=== PATIENT | female | born 1980 | race African-American/Black ===

== ENCOUNTER 2017-03-29 16:56 | Emergency (ER) | payer MEDICAID, OTHER ==
[~2017-03-29] VITALS: Ht 157.5 cm; Wt 54.4 kg
[~2017-03-29 16:56] MED LIST: ATEN25TA PO; LORA-259 PO
--- NOTE | 2017-03-29 17:43 | NUR ---
PARVEZ RIOS at the bedside.
--- NOTE | 2017-03-29 17:54 | NUR ---
Patient discharged to home in stable conditon. Written and verbal after care instructions given. Patient verbalizes understanding of instructions.
[2017-03-29 17:55] VITALS: BP 146/90
== END 2017-03-29 17:57 | disposition home or self-care (01) ==
LOC: ER 16:57
DX: Z76.0 Encounter for issue of repeat prescription (principal)
CPT/HCPCS: A4663

== ENCOUNTER 2017-04-19 04:04 | Emergency (ER) | payer OTHER ==
[~2017-04-19] VITALS: Ht 160 cm; Wt 47.2 kg
--- NOTE | 2017-04-19 04:50 | NUR ---
at bedside for MSE. Pt c/o skin rash on rt nares.
--- NOTE | 2017-04-19 05:11 | NUR ---
Patient discharged to home in stable conditon. Written and verbal after care instructions given. Patient verbalizes understanding of instructions. Stable gait, no distress noted.
[2017-04-19 05:12] VITALS: BP 108/88
== END 2017-04-19 05:12 | disposition home or self-care (01) ==
LOC: ER 04:04
DX: L01.00 Impetigo, unspecified (principal); F10.239 Alcohol dependence with withdrawal, unspecified; D50.9 Iron deficiency anemia, unspecified
CPT/HCPCS: A4663

== ENCOUNTER 2017-05-31 00:23 | Emergency (ER) | payer OTHER ==
[~2017-05-31] VITALS: Ht 160 cm; Wt 49.4 kg
--- NOTE | 2017-05-31 00:50 | NUR ---
Dr. Espino at bedside for MSE.
--- NOTE | 2017-05-31 01:05 | NUR ---
Patient discharged to home in stable conditon. Written and verbal after care instructions given. Patient verbalizes understanding of instructions. Patient ambulated out of ER with steady gait, VSS, no acute signs of distress, all belongings taken.
[2017-05-31 01:07] VITALS: BP 135/98
== END 2017-05-31 01:07 | disposition home or self-care (01) ==
LOC: ER 00:23
DX: F41.9 Anxiety disorder, unspecified (principal); F10.239 Alcohol dependence with withdrawal, unspecified; F15.10 Other stimulant abuse, uncomplicated; Z79.899 Other long term (current) drug therapy
CPT/HCPCS: 99284; A4663

== ENCOUNTER 2017-07-23 19:55 | Emergency (ER) | payer OTHER ==
[~2017-07-23] VITALS: Ht 160 cm; Wt 48.5 kg
[2017-07-23] MEDS ORDERED: CHLORDIAZEPOXIDE HCL 25 MG CAPSULE PO ONE (20:30)
[2017-07-23] MEDS ORDERED: CHLORDIAZEPOXIDE HCL 25 MG CAPSULE ONE (20:36)
--- NOTE | 2017-07-23 20:43 | NUR ---
PT AAOX4. PT AMBULATED TO ER WITH C/O NAUSEA, HEADACHE, AND TREMORS. PT ABLE TO SPEAK IN COMPELTE SENTENCES AND ABLE TO VERABLIZE NEEDS. ALL PT NEEDS ATTENDED & MET.
--- NOTE | 2017-07-23 20:43 | NUR ---
Patient discharged to home in stable conditon. Written and verbal after care instructions given. Patient verbalizes understanding of instructions. Patient left ER and walks in steady gait. No acute distress noted. Pt giong home via [employer].
[2017-07-23 20:49] VITALS: BP 102/57
== END 2017-07-23 20:50 | disposition home or self-care (01) ==
LOC: ER 19:58
DX: F10.239 Alcohol dependence with withdrawal, unspecified (principal); F11.10 Opioid abuse, uncomplicated; Z79.899 Other long term (current) drug therapy
CPT/HCPCS: 99283; A4663

== ENCOUNTER 2017-09-21 02:06 | Emergency (ER) | payer OTHER ==
[~2017-09-21] VITALS: Ht 160 cm; Wt 48.5 kg
[2017-09-21] MEDS ORDERED: LORAZEPAM 1 MG TABLET ONE (02:57)
[2017-09-21 02:58] VITALS: BP 124/92
--- NOTE | 2017-09-21 02:58 | NUR ---
Patient discharged to home in stable conditon. Written and verbal after care instructions given. Patient verbalizes understanding of instructions.
[2017-09-21] MEDS ORDERED: LORAZEPAM 0.5 MG TABLET PO ONE (03:00)
== END 2017-09-21 02:59 | disposition home or self-care (01) ==
LOC: ER 02:08
DX: F41.9 Anxiety disorder, unspecified (principal); Z79.899 Other long term (current) drug therapy
CPT/HCPCS: 99284; A4663

== ENCOUNTER 2017-10-27 18:35 | Emergency (ER) | payer OTHER ==
[~2017-10-27] VITALS: Ht 167.6 cm; Wt 48.5 kg
--- NOTE | 2017-10-27 18:57 | NUR ---
Patient is resting comfortably on gurney while using her personal electronic device, NAD, pending MD evaluation
--- NOTE | 2017-10-27 19:06 | NUR ---
still for GOLD Degroot to ISAEL Zepeda
--- NOTE | 2017-10-27 19:40 | NUR ---
Patient discharged to home in stable conditon. Written and verbal after care instructions given. Patient verbalizes understanding of instructions. Patient able to ambulate unassisted with a steady gait. Patient left with all personal belongings.
[2017-10-27] MEDS ORDERED: CHLORDIAZEPOXIDE HCL 25 MG CAPSULE ONE (19:41)
[2017-10-27] MEDS ORDERED: CHLORDIAZEPOXIDE HCL 25 MG CAPSULE PO ONE (19:45)
[2017-10-27 19:46] VITALS: BP 156/88
== END 2017-10-27 19:40 | disposition home or self-care (01) ==
LOC: ER 18:37
DX: F10.239 Alcohol dependence with withdrawal, unspecified (principal); Z76.0 Encounter for issue of repeat prescription; F14.10 Cocaine abuse, uncomplicated
CPT/HCPCS: A4663

== ENCOUNTER 2018-01-31 17:34 | Inpatient (IN) | payer OTHER ==
[~2018-01-31] VITALS: Ht 165.1 cm; Wt 47.6 kg
--- NOTE | 2018-01-31 17:43 | NUR ---
DR DEL ANGEL at the bedside for MSE.
[2018-01-31] MEDS ORDERED: LORAZEPAM 2 MG/1 ML VIAL IV ONE ×2 (18:00→22:00)
[2018-01-31] MEDS ORDERED: THIAMINE HCL 200 MG/2 ML VIAL IV ONE (18:00)
[2018-01-31] MEDS ORDERED: IV NORMAL SALINE 1000 ML BAG IV ONE (18:00)
[2018-01-31 18:01] LABS: BASOPHILS % (AUTO) 0.4 % (0.0-2.0); EOSINOPHILS % (AUTO) 0.5 % (0.0-7.0); HEMATOCRIT 39.4 % (31.2-41.9); HEMOGLOBIN 13.1 g/dL (10.9-14.3); LYMPHOCYTES # (AUTO) 0.7 K/uL (20.0-40.0); LYMPHOCYTES % (AUTO) 9.5 % (20.5-51.5); MEAN CORPUSCULAR HEMOGLOBIN 32.2 uug (24.7-32.8); MEAN CORPUSCULAR HGB CONC 33 g/dL (32.3-35.6); MEAN CORPUSCULAR VOLUME 97.3 fL (75.5-95.3); MONOCYTES # (AUTO) 1.1 K/uL (2.0-10.0); MONOCYTES % (AUTO) 14.5 % (0.0-11.0); NEUTROPHILS # (AUTO) 5.5 K/uL (1.8-8.9); NEUTROPHILS % (AUTO) 75.1 % (38.5-71.5); PLATELET COUNT (AUTO) 231 K/uL (179-408); RED BLOOD CELL COUNT(AUTO) 4.05 MIL/uL (3.63-4.92); WHITE BLOOD COUNT (AUTO) 7.3 K/uL (3.8-11.8)
[2018-01-31 18:07] LABS: CARBON DIOXIDE 28 mmol/L (21-32); CHLORIDE 93 mmol/L (98-107); CREATININE 0.8 mg/dL (0.6-1.3); GLUCOSE 135 mg/dL (74-106); POTASSIUM 3.3 mmol/L (3.5-5.1); UREA NITROGEN, BLOOD 14 mg/dL (7-18)
[2018-01-31 18:12] LABS: ALANINE AMINOTRANSFERASE 93 U/L (14-59); ALKALINE PHOSPHATASE 70 U/L (50-136); ASPARTATE AMINOTRANSFERASE 108 U/L (15-37); BILIRUBIN,DIRECT 0.3 mg/dL (0.0-0.2); TOTAL PROTEIN, SERUM 8.8 g/dL (6.4-8.2)
[2018-01-31 18:15] LABS: ETHANOL < 3 MG/DL (0-0)
[2018-01-31] MEDS ORDERED: POTASSIUM CHLORIDE 20 MEQ TAB.PRT.SR PO ONE (18:15)
[2018-01-31 18:27] LABS: *URINE HCG, QUAL NEGATIVE (NEGATIVE)
[2018-01-31] MEDS ORDERED: methylPREDNISolone SOD SUCC 125 MG/2 ML VIAL IV ONE (18:30)
[2018-01-31] MEDS ORDERED: ALBUTEROL SULFATE 2.5 MG/3 ML NEBU NEB ONE (18:30)
[2018-01-31] MEDS ORDERED: IPRATROPIUM BROMIDE 0.5 MG/2.5 ML NEBU NEB ONE (18:30)
--- NOTE | 2018-01-31 18:30 | NUR ---
Pt is confused and disoriented and talking to self. No Seizure activity noted.
[2018-01-31 18:40] LABS: *AMPHETAMINE, URINE POSITIVE (NEGATIVE); *BARBITURATE, URINE NEGATIVE (NEGATIVE); *CANNABINOID, URINE NEGATIVE (NEGATIVE); *COCCAINE, URINE NEGATIVE (NEGATIVE); *OPIATE, URINE NEGATIVE (NEGATIVE); *PHENCYCLIDINE SCREEN,URINE NEGATIVE (NEGATIVE)
--- NOTE | 2018-01-31 18:40 | NUR ---
DINNER PROVIDED, ATE W/ GOOD APPETITE. NO C/O PAIN.
--- NOTE | 2018-01-31 19:02 | NUR ---
Patient is resting comfortably in bed with eyes closed, NAD noted.
[2018-01-31] MEDS ORDERED: THIAMINE HCL 200 MG/2 ML VIAL ONE (19:09)
[2018-01-31] MEDS ORDERED: LORAZEPAM 2 MG/1 ML VIAL ONE (19:10)
[2018-01-31] MEDS ORDERED: POTASSIUM CHLORIDE 20 MEQ TAB.PRT.SR ONE (19:25)
--- NOTE | 2018-01-31 19:37 | NUR ---
SBAR report given to KARON Mcclellan.
[2018-01-31] MEDS ORDERED: IV NS 1000 ML 1,000 ML IV PRN (19:41)
[2018-01-31] MEDS ORDERED: THIAMINE HCL INJ 100 MG in IV DEXTROSE 5% 50 ML IV SCH (19:45)
[2018-01-31] MEDS ORDERED: HYDROCODONE/APAP 5-325MG TABLET PO PRN (19:45)
[2018-01-31] MEDS ORDERED: MAGNESIUM HYDROXIDE 30 ML LIQUID UDC PO PRN (19:45)
[2018-01-31] MEDS ORDERED: IPRATROPIUM BROMIDE 0.5 MG/2.5 ML NEBU NEB PRN (19:45)
[2018-01-31] MEDS ORDERED: LORAZEPAM 2 MG/1 ML VIAL IV PRN (19:45)
[2018-01-31] MEDS ORDERED: MAGNESIUM SULFATE/D5W 100 ML IV SCH (19:45)
[2018-01-31] MEDS ORDERED: TEMAZEPAM 15 MG CAPSULE PO PRN (19:45)
[2018-01-31] MEDS ORDERED: FOLIC ACID 1 MG in IV DEXTROSE 5% 50 ML IV SCH (19:45)
[2018-01-31] MEDS ORDERED: ALBUTEROL SULFATE 2.5 MG/3 ML NEBU NEB PRN (19:45)
[2018-01-31] MEDS ORDERED: ACETAMINOPHEN 325 MG TABLET PO PRN (19:45)
[2018-01-31] MEDS ORDERED: ONDANSETRON 4 MG/2 ML VIAL IV PRN (19:45)
--- NOTE | 2018-01-31 19:59 | NUR ---
ADMITTED TO [facility] VIA W/C W/ ADM DX: ALCOHOL JOCE UNDER GEORGE DENNISON. PERSONAL BELONGINGS CHECKED.
[2018-01-31 20:00] VITALS: BP 133/90
--- NOTE | 2018-01-31 20:00 | NUR ---
Received pt in unit under care of CARLA Evangelista with admitting diagnosis of Delirium Tremens. Pt alert and oriented x 4, redirectable and able to make needs known. No s/s of acute distress. Pt constantly talking to self, but denies tremors and hallucinations at this time. Pertinent assessments done. Tele monitor sinus tachy with HR at 120. Relaxation techniques implemented. Pt made aware of plan of care with mom at bedside. Unit orientation provided. Safe environment implemented. Call light within reach.
[2018-01-31] MEDS ORDERED: ATENOLOL 25 MG TABLET PO ONE (22:00)
--- NOTE | 2018-01-31 22:00 | NUR ---
Notified admitting OBSTETRICS AND GYNECOLOGY PROFESSOR of pt's elevated HR, received orders to administer additional dose of Ativan 1 mg IVP and Tenormin 12.5 mg PO once. Will continue to monitor closely.
[2018-01-31] MEDS ORDERED: FOLIC ACID 5 MG/ML VIAL IV ONE (22:50)
[2018-01-31] MEDS ORDERED: MAGNESIUM SULFATE/D5W 100 ML ONE (22:51)
[2018-01-31] MEDS: CHLORDIAZEPOXIDE HCL 25 MG CAPSULE PO SCH (23:26)
[2018-02-01] VITALS: BP 113/72
[2018-02-01 04:00] VITALS: BP 106/73
[2018-02-01 05:35] LABS: BASOPHILS % (AUTO) 0.4 % (0.0-2.0); EOSINOPHILS % (AUTO) 0.5 % (0.0-7.0); HEMATOCRIT 39.3 % (31.2-41.9); HEMOGLOBIN 13.3 g/dL (10.9-14.3); LYMPHOCYTES # (AUTO) 1.5 K/uL (20.0-40.0); LYMPHOCYTES % (AUTO) 16.9 % (20.5-51.5); MEAN CORPUSCULAR HGB CONC 34 g/dL (32.3-35.6); MEAN CORPUSCULAR VOLUME 97.6 fL (75.5-95.3); MONOCYTES % (AUTO) 11.2 % (0.0-11.0); NEUTROPHILS # (AUTO) 6.4 K/uL (1.8-8.9); PLATELET COUNT (AUTO) 208 K/uL (179-408); RED BLOOD CELL COUNT(AUTO) 4.02 MIL/uL (3.63-4.92)
[2018-02-01 05:55] LABS: CREATININE 0.9 mg/dL (0.6-1.3); PHOSPHOROUS 3.3 mg/dL (2.5-4.9); POTASSIUM 3.6 mmol/L (3.5-5.1); TOTAL PROTEIN, SERUM 7.6 g/dL (6.4-8.2)
[2018-02-01] MEDS: CHLORDIAZEPOXIDE HCL 25 MG CAPSULE PO SCH ×2 (06:11→12:18)
--- NOTE | 2018-02-01 06:48 | NUR ---
All needs attended to. No s/s of acute distress noted at this time. Tele sinus rhythm with HR at 95. Safe environment implemented.
--- NOTE | 2018-02-01 07:10 | NUR ---
Received patient in bed, asleep, in no acute distress. No s/s of pain or SOB noted. IV site on RFA intact, IV fluids running at 75cc/hr. Fall precaution in place. Will continue to monitor
[2018-02-01] MEDS ORDERED: ATENOLOL 25 MG TABLET PO SCH (09:00)
[2018-02-01] MEDS ORDERED: PANTOPRAZOLE SODIUM 40 MG VIAL IV SCH (09:00)
[2018-02-01] MEDS ORDERED: NICOTINE 14 MG/24HR PATCH TD SCH (09:00)
[2018-02-01] MEDS ORDERED: FOLIC ACID 1 MG TABLET PO SCH (10:45)
[2018-02-01] MEDS ORDERED: THIAMINE HCL 100 MG TABLET PO SCH (10:45)
[2018-02-01 11:17] VITALS: BP 105/70
[2018-02-01] MEDS ORDERED: THIA100T13 PO (12:03)
[2018-02-01] MEDS ORDERED: FOLI1TAB16 PO (12:03)
[2018-02-01] MEDS ORDERED: CHLO25CA22 PO (12:03)
--- NOTE | 2018-02-01 12:48 | NUR ---
Patient was discharged to home via private car accompanied by mother. Discharge instructions given, instructed [facility] Johnson because patient does not have a PCP. Informations about [facility] provided, patient able to verbalized understanding, per patient she will call in and set up appointment. Prescriptions given to patient. Iv site was discontinued, no s/s of bleeding noted. Left the hospital in stable condition.
== END 2018-02-01 12:50 | disposition home or self-care (01) | DRG 774 ==
LOC: ER 17:35 → TELE 19:41
PROVIDERS: ADMIT Nurse Practitioner Acute Care; ATTEND Nurse Practitioner Acute Care
DX: F10.231 Alcohol dependence with withdrawal delirium (principal); F14.10 Cocaine abuse, uncomplicated; G31.2 Degeneration of nervous system due to alcohol; E87.1 Hypo-osmolality and hyponatremia; D52.9 Folate deficiency anemia, unspecified; K29.20 Alcoholic gastritis without bleeding; Y90.0 Blood alcohol level of less than 20 mg/100 ml; F17.210 Nicotine dependence, cigarettes, uncomplicated; E87.6 Hypokalemia; R74.0 Nonspecific elevation of levels of transaminase and lactic acid dehydrogenase [LDH]; F15.10 Other stimulant abuse, uncomplicated; F41.9 Anxiety disorder, unspecified; Z79.899 Other long term (current) drug therapy; D75.89 Other specified diseases of blood and blood-forming organs; R73.9 Hyperglycemia, unspecified
CPT/HCPCS: 36415; 71045; 80307; 83550; 83735; 84100; 84703; 85025; 93005; A4663; C9113; G0378; G0480; J2060; J2405; J3411; J3475; J3490; J7030; J7060

== ENCOUNTER 2018-05-17 02:15 | Emergency (ER) | payer OTHER ==
[~2018-05-17] VITALS: Ht 160 cm; Wt 51.3 kg
[~2018-05-17 02:15] MED LIST changes: +CHLO25CA22 PO; +FOLI1TAB16 PO; +THIA100T13 PO
[2018-05-17] MEDS ORDERED: THIAMINE (02:23)
[2018-05-17] MEDS ORDERED: VITAMIN B1 (02:23)
--- NOTE | 2018-05-17 02:31 | NUR ---
Pt ambulates to ER with c/o fatigue, sore throat, & cough x 2 weeks. SA02 100% room air. Vital signs stable. No acute distress noted.
--- NOTE | 2018-05-17 03:08 | NUR ---
Dr. Puga, , at bedside to evaluate pt.
[2018-05-17] MEDS ORDERED: IV NORMAL SALINE 1000 ML BAG IV ONE (03:15)
[2018-05-17] MEDS ORDERED: ACETAMINOPHEN 325 MG TABLET PO ONE (03:15)
[2018-05-17] MEDS ORDERED: METOCLOPRAMIDE HCL 10 MG/2 ML VIAL IV ONE (03:15)
[2018-05-17 03:36] LABS: BASOPHILS # (AUTO) 0.1 K/uL (0.0-8.0); BASOPHILS % (AUTO) 1.4 % (0.0-2.0); CARBON DIOXIDE 29 mmol/L (21-32); CHLORIDE 102 mmol/L (98-107); CREATININE 0.5 mg/dL (0.6-1.3); EOSINOPHILS # (AUTO) 0.2 K/uL (0.0-0.7); EOSINOPHILS % (AUTO) 3.7 % (0.0-7.0); GLUCOSE 86 mg/dL (74-106); HEMATOCRIT 32.5 % (31.2-41.9); HEMOGLOBIN 10.5 g/dL (10.9-14.3); LYMPHOCYTES # (AUTO) 1.8 K/uL (20.0-40.0); LYMPHOCYTES % (AUTO) 35.6 % (20.5-51.5); MEAN CORPUSCULAR HEMOGLOBIN 29.9 uug (24.7-32.8); MEAN CORPUSCULAR HGB CONC 32 g/dL (32.3-35.6); MEAN CORPUSCULAR VOLUME 92.6 fL (75.5-95.3); MONOCYTES # (AUTO) 0.9 K/uL (2.0-10.0); MONOCYTES % (AUTO) 18.2 % (0.0-11.0); NEUTROPHILS # (AUTO) 2.1 K/uL (1.8-8.9); NEUTROPHILS % (AUTO) 41.1 % (38.5-71.5); PLATELET COUNT (AUTO) 379 K/uL (179-408); POTASSIUM 3.7 mmol/L (3.5-5.1); RED BLOOD CELL COUNT(AUTO) 3.51 MIL/uL (3.63-4.92); UREA NITROGEN, BLOOD 11 mg/dL (7-18)
[2018-05-17 03:46] LABS: BASOPHILS % (MANUAL) 1 % (0-2); EOSINOPHILS % (MANUAL) 4 % (0-8); LYMPHOCYTES % (MANUAL) 36 % (20-40); MONOCYTES % (MANUAL) 18 % (2-10); NEUTROPHILS % (MANUAL) 41 % (42-75)
[2018-05-17] MEDS ORDERED: ACETAMINOPHEN 325 MG TABLET ONE (04:00)
[2018-05-17] MEDS ORDERED: METOCLOPRAMIDE HCL 10 MG/2 ML VIAL ONE (04:00)
--- NOTE | 2018-05-17 04:00 | NUR ---
Pt sleeping in bed comfortably. Pending results.
--- NOTE | 2018-05-17 06:00 | NUR ---
IV removed. Catheter intact and site benign. Pressure and 4x4 gauze applied to site. No bleeding noted.
--- NOTE | 2018-05-17 06:00 | NUR ---
Patient discharged to home in stable conditon. Written and verbal after care instructions given. Patient verbalizes understanding of instructions.
[2018-05-17 06:19] VITALS: BP 118/82
== END 2018-05-17 06:20 | disposition home or self-care (01) ==
LOC: ER 02:15
DX: J18.9 Pneumonia, unspecified organism (principal); F17.200 Nicotine dependence, unspecified, uncomplicated; F14.10 Cocaine abuse, uncomplicated; Z79.899 Other long term (current) drug therapy
CPT/HCPCS: 36415; 71045; 80048; 84702; 85025; 96374; 99284; J2765; A4663; J7030

== ENCOUNTER 2018-06-16 02:31 | Emergency (ER) | payer OTHER ==
[~2018-06-16] VITALS: Ht 152.4 cm; Wt 54.4 kg
--- NOTE | 2018-06-16 02:42 | NUR ---
Pt ambulates to ER here for test, states she wants ativan for alcohol withdrawal, & vitamin B. No abd pain, n/v/d. No chest pain/sob. AAOx3.
[2018-06-16] MEDS ORDERED: LORAZEPAM 0.5 MG TABLET PO ONE (02:45)
[2018-06-16] MEDS ORDERED: VITAMIN B COMPLEX 1 TABLET PO SCH (02:45)
--- NOTE | 2018-06-16 03:41 | NUR ---
Pt is sleeping in bed comfortably. Respirations even + unlabored. Pending results of test.
[2018-06-16] MEDS ORDERED: LORAZEPAM 1 MG TABLET ONE ×3 (03:51→03:58)
[2018-06-16] MEDS ORDERED: THIAMINE HCL 100 MG TABLET ONE (04:00)
[2018-06-16] MEDS ORDERED: THIAMINE HCL 100 MG TABLET PO ONE (04:00)
--- NOTE | 2018-06-16 05:41 | NUR ---
Patient given written and verbal discharge instructions. Patient verbalizes understanding of instructions. Patient is ambulatory with steady gait. Refuses offer of [facility] placement. Patient given list of available shelters in surrounding area. Pt given sandwich.
--- NOTE | 2018-06-16 05:42 | NUR ---
Pt is awake, alert, oriented x 3. Ambulated out of ER in stable gait.
== END 2018-06-16 05:53 | disposition home or self-care (01) ==
LOC: ER 02:33
DX: F10.129 Alcohol abuse with intoxication, unspecified (principal); F14.10 Cocaine abuse, uncomplicated; F15.10 Other stimulant abuse, uncomplicated; F17.200 Nicotine dependence, unspecified, uncomplicated; Y90.9 Presence of alcohol in blood, level not specified
CPT/HCPCS: 36415; A4663

== ENCOUNTER 2018-06-16 09:29 | Emergency (ER) | payer OTHER ==
[~2018-06-16] VITALS: Ht 152.4 cm; Wt 54.4 kg
--- NOTE | 2018-06-16 09:44 | NUR ---
Dr Shelley at the bedside for MSE.
[2018-06-16 10:20] LABS: BASOPHILS % (AUTO) 0.6 % (0.0-2.0); EOSINOPHILS # (AUTO) 0.1 K/uL (0.0-0.7); EOSINOPHILS % (AUTO) 1.3 % (0.0-7.0); HEMATOCRIT 33.8 % (31.2-41.9); HEMOGLOBIN 10.9 g/dL (10.9-14.3); LYMPHOCYTES # (AUTO) 1.1 K/uL (20.0-40.0); LYMPHOCYTES % (AUTO) 19.8 % (20.5-51.5); MEAN CORPUSCULAR HEMOGLOBIN 28.6 uug (24.7-32.8); MEAN CORPUSCULAR HGB CONC 32 g/dL (32.3-35.6); MEAN CORPUSCULAR VOLUME 88.6 fL (75.5-95.3); MONOCYTES # (AUTO) 0.8 K/uL (2.0-10.0); MONOCYTES % (AUTO) 14.9 % (0.0-11.0); NEUTROPHILS # (AUTO) 3.4 K/uL (1.8-8.9); NEUTROPHILS % (AUTO) 63.4 % (38.5-71.5); PLATELET COUNT (AUTO) 345 K/uL (179-408); RED BLOOD CELL COUNT(AUTO) 3.81 MIL/uL (3.63-4.92); WHITE BLOOD COUNT (AUTO) 5.4 K/uL (3.8-11.8)
[2018-06-16 10:25] LABS: CARBON DIOXIDE 31 mmol/L (21-32); CHLORIDE 98 mmol/L (98-107); CREATININE 0.6 mg/dL (0.6-1.3); GLUCOSE 135 mg/dL (74-106); POTASSIUM 3.4 mmol/L (3.5-5.1); UREA NITROGEN, BLOOD 16 mg/dL (7-18)
[2018-06-16 10:31] LABS: ALANINE AMINOTRANSFERASE 66 U/L (14-59); ALKALINE PHOSPHATASE 77 U/L (50-136); ASPARTATE AMINOTRANSFERASE 70 U/L (15-37); BILIRUBIN,DIRECT 0.2 mg/dL (0.0-0.2); BILIRUBIN,TOTAL 0.8 mg/dL (0.2-1.0); LIPASE 92 U/L (73-393); TOTAL PROTEIN, SERUM 7.1 g/dL (6.4-8.2)
--- NOTE | 2018-06-16 10:35 | NUR ---
Patient is resting comfortably in bed with eyes closed, NAD noted.
[2018-06-16] MEDS ORDERED: ACETAMINOPHEN 325 MG TABLET ONE (10:40)
[2018-06-16] MEDS ORDERED: ONDANSETRON HCL 4 MG TABLET ONE (10:40)
--- NOTE | 2018-06-16 10:40 | NUR ---
Pt able to tolorate po intake.
[2018-06-16] MEDS: ACETAMINOPHEN 325 MG TABLET PO ONE (10:42)
[2018-06-16] MEDS: ONDANSETRON HCL 4 MG TABLET PO ONE (10:43)
--- NOTE | 2018-06-16 11:10 | NUR ---
Pt states she spoke to her mother and will be picked up.
--- NOTE | 2018-06-16 11:30 | NUR ---
Pt mother and grandmother at the bedside speaking w/ pt.
--- NOTE | 2018-06-16 11:38 | NUR ---
10:55am: SW met with patient as a follow-up to patient's admission earlier today, when patient reported being homeless and was provided by homeless resource packet by shift coordinator nurse. This is patient's second admission today. Patient is a 37 year old female, who was in her assigned ED bed and on the phone with her mother, when SW attempted to meet with her. Patient was receptive to meeting with this SW. Patient states being homeless for the past month. Patient stated that she was previously living with her ex-fiance. Patient acknowledged being provided with the homeless resource packet, and pulled it out of her bag. SW reviewed the packet with her, which includes the list of winter shelters throughout [facility], a list of pharmacies throughout the [facility], a list of medical clinics, mental health clinics, and substance abuse programs and treatment clinics, and the [facility] homeless resource directory which includes a list of places that homeless individuals can go for showers, hot meals, sack lunches, and food pantries. SW discussed discharge plan with patient, and patient stated that her mother was on her way to pick her up. SW was previously provided with food, and her clothes were appropriate and clean. Medical care and discharge instructions were provided to the patient, as evidenced by the paperwork that patient had on her lap and her acknowledgement that care and instructions were provided. Patient stated that there were no other services that she was interested in, and that she was waiting for her mother. SW informed ISAEL Nava of above. No further SS interventions needed at this time.
--- NOTE | 2018-06-16 11:58 | NUR ---
Patient discharged to home in stable conditon. Written and verbal after care instructions given. Patient verbalizes understanding of instructions. Pt left ER w/ steady gait, accompained by mother and grandmother.
[2018-06-16 12:00] VITALS: BP 111/51
== END 2018-06-16 12:00 | disposition home or self-care (01) ==
LOC: ER 09:29
DX: R07.89 Other chest pain (principal); R51 Headache; F14.10 Cocaine abuse, uncomplicated; F15.10 Other stimulant abuse, uncomplicated; F17.290 Nicotine dependence, other tobacco product, uncomplicated
CPT/HCPCS: 36415; 71045; 83690; 85025; 93005; A4663; Q0162

== ENCOUNTER 2018-07-14 20:03 | Emergency (ER) | payer OTHER ==
[~2018-07-14] VITALS: Ht 160 cm; Wt 46.7 kg
--- NOTE | 2018-07-14 20:30 | NUR ---
Patient ambulated with stable gait. AAOX4. Speech clear, speaks in complete sentences. No neuro deficits. Patient came in for c/o flu-like symptoms x1 week. Patient had a cough that now results in a sore throat. Respiratory even and unlabored. No cardiovascular distress. No GI/ distress noted. Patient in bed at lowest position, siderails upx2, call light within reach. Fall precautions implemented per protocol.
--- NOTE | 2018-07-14 21:02 | NUR ---
ERMD at bedside
--- NOTE | 2018-07-14 21:05 | NUR ---
Patient given written and verbal discharge instructions. Patient verbalizes understanding of instructions. Patient is ambulatory with steady gait. Refuses offer of retirement placement. Patient given list of available shelters in surrounding area.
== END 2018-07-14 21:05 | disposition home or self-care (01) ==
LOC: ER 20:05
DX: J02.9 Acute pharyngitis, unspecified (principal); R51 Headache; F17.200 Nicotine dependence, unspecified, uncomplicated; F12.10 Cannabis abuse, uncomplicated; F15.10 Other stimulant abuse, uncomplicated
CPT/HCPCS: A4663

== ENCOUNTER 2018-08-09 | Emergency (ER) | payer OTHER ==
[~2018-08-09] VITALS: Ht 152.4 cm; Wt 46.7 kg
--- NOTE | 2018-08-09 00:20 | NUR ---
Patient ambulated with stable gait. A/Ox4. Speech is clear, speaks in complete sentences. No neuro deficits. Patient came in for c/o flu-like symptoms x 1 week. Respiratory even and unlabored, no cough no sob. No cardiovascular distress noted. No GI/ distress.
[2018-08-09] MEDS ORDERED: IBUPROFEN 600 MG TABLET ONE (00:25)
[2018-08-09] MEDS ORDERED: PENICILLIN V POTASSIUM 500 MG TABLET ONE (00:25)
[2018-08-09] MEDS ORDERED: IBUPROFEN 600 MG TABLET PO ONE (00:30)
[2018-08-09] MEDS ORDERED: PENICILLIN V POTASSIUM 500 MG TABLET PO ONE (00:30)
--- NOTE | 2018-08-09 00:32 | NUR ---
Patient discharged to home in stable conditon. Written and verbal after care instructions given. Patient verbalizes understanding of instructions. Patient ambulated with stable gait.
[2018-08-09 00:38] VITALS: BP 109/81
== END 2018-08-09 00:38 | disposition home or self-care (01) ==
LOC: ER 00:02
DX: J06.9 Acute upper respiratory infection, unspecified (principal); K08.89 Other specified disorders of teeth and supporting structures
CPT/HCPCS: A4663